=== PATIENT | male | born 1955 | race Asian ===

== ENCOUNTER → 2018-09-29 07:49 | Outpatient (CLI) | payer MEDICARE, SELFPAY ==
--- NOTE | 2018-09-29 | DI.MRI.S_ITS ---
PROCEDURE: MR KNEE RT WO CON INDICATIONS: SURGERY PLANNING - right TECHNIQUE: Noncontrast sagittal PD fast spin echo and T2 fast spin echo with fat saturation, sagittal 3-D FLASH with fat saturation; coronal T1 spin echo and PD fast spin echo with fat saturation, and axial PD fast spin echo with fat saturation through the knee. COMPARISON: [facility] [place], CR, XR KNEE ARTHRITIC SERIES BI, 09/16/2018, 13:30. FINDINGS: Image quality: Excellent. Menisci: There is medial extrusion of the medial meniscus. Amorphous high signal intensity within the anterior horn, body, and posterior horn of the medial meniscus is present, demonstrating superior and inferior articular surface extension, indicating degenerative tearing. Multiple para meniscal cysts are present medially and posteriorly. The lateral meniscal body demonstrates radial tearing of the free edge. Cruciate ligaments: The anterior and posterior cruciate ligaments appear intact. Medial structures: There is a small amount of fluid deep to the medial collateral ligament. There is high-grade tearing of the posterior fibers of the medial collateral ligament. Visualized portions of the pes anserinus tendons appear normal. No abnormal bursal fluid. Lateral structures: The lateral collateral ligament demonstrates mild T2 signal elevation within the proximal aspect of the femoral origin. The long and short heads of the biceps femoris tendon appear intact. The popliteus tendon appears normal. Iliotibial band appears normal. Anterior structures: The quadriceps and patellar tendons appear intact. There is mild T2 signal elevation within the patellar tendon superiorly at the patellar insertion. Patellar alignment is normal. No femoral trochlear dysplasia or ventral trochlear prominence. No edema in the infrapatellar fat pad. Bones and cartilage: No bone marrow contusions or fractures. There is moderate tricompartmental periarticular osteophyte formation. There is mild subchondral degenerative marrow edema within the posterior weightbearing and nonweightbearing aspect of the medial femoral condyle, as well as the anterior and posterior weightbearing aspect of the medial tibial plateau. Subchondral cysts within the medial tibial plateau weightbearing aspect anteriorly. Severe diffuse articular cartilage loss overlies the weightbearing aspects of the medial femoral condyle and medial tibial plateau. Mild diffuse articular cartilage loss overlies the weightbearing aspects of the lateral femoral condyle and lateral tibial plateau, as well as the medial and lateral patellar facets and femoral trochlea. Joint space: There is a moderate knee joint effusion, and a small ganglion cyst along the popliteus. No Roberts's cyst. Normal appearing synovial plicae are incidentally noted. IMPRESSION: 1. Tricompartmental osteoarthritis with associated articular cartilage loss, worst in the medial compartment. 2. Medial and lateral meniscal tearing. 3. Partial-thickness tearing of the medial and lateral collateral ligaments. Medial collateral ligament bursitis. 4. Small knee joint effusion. Small ganglion cyst along the popliteus. 5. Patellar tendinitis. Dictated by: Brenda Zhou M.D. on 09/29/2018 at 10:17 Approved by: Brenda Zhou M.D. on 09/29/2018 at 10:23
--- NOTE | 2018-09-29 | DI.MRI.S_ITS ---
PROCEDURE: MR KNEE LT WO CON INDICATIONS: RIGHT KNEE PAIN TECHNIQUE: Noncontrast sagittal PD fast spin echo and T2 fast spin echo with fat saturation, sagittal 3-D FLASH with fat saturation; coronal T1 spin echo and PD fast spin echo with fat saturation, and axial PD fast spin echo with fat saturation through the knee. COMPARISON: [facility], MR, MR KNEE RT WO CON, 09/29/2018, 8:59. FINDINGS: Image quality: Excellent. Menisci: Complex tear involving anterior horn, body and posterior horn of medial meniscus is seen extending to the inferior articulating surface. Peripheral displacement of medial meniscus is seen bony medial collateral ligament. There is no evidence of focal lateral meniscal tear. The meniscal root ligaments appear intact. Cruciate ligaments: The anterior and posterior cruciate ligaments appear intact. Medial structures: Sprain and low to moderate grade partial-thickness tear involving MCL is seen near its femoral insertion.. The posterior oblique ligament, semimembranosus tendon insertions, oblique popliteal ligament, and meniscocapsular junction appear intact. Visualized portions of the pes anserinus tendons appear normal. No abnormal bursal fluid. Lateral structures: The lateral collateral ligament, long and short heads of the biceps femoris tendon appear intact. The popliteus tendon appears normal; the popliteofibular ligament appears intact. The posterosuperior and anteroinferior popliteomeniscal fascicles appear intact. The arcuate and fabellofibular ligaments appear intact, on either side of the lateral inferior geniculate artery. Iliotibial band appears normal. Anterior structures: The quadriceps and patellar tendons appear intact. Patellar alignment is normal. No femoral trochlear dysplasia or ventral trochlear prominence. No edema in the infrapatellar fat pad. Bones and cartilage: Moderate tricompartment osteoarthritis and chondromalacia are seen most prominent involving medial femoral tibial compartment. Mild edema involving medial femoral condyle weightbearing portion and adjacent medial tibial plateau is seen. No fracture or dislocation. Chondromalacia and underlying tiny 3 mm osteochondral lesion involving lateral facet of patella cartilage near apex is also seen. Joint space: There is moderate amount of joint fluid, no gross loose body. No Roberts's cyst. Normal appearing synovial plicae are incidentally noted. IMPRESSION: 1. Moderate tricompartment osteoarthritis most prominent in the medial femoral tibial compartment. Chondromalacia patella as described above. Moderate joint effusion, no gross loose body. 2. Complex tear involving entire medial meniscus extending to inferior articulating surface. No focal lateral meniscal tear. 3. Sprain and low to moderate grade partial-thickness involving medial collateral ligament near its femoral insertion. Cruciate ligaments are intact. Dictated by: Anthony Guerrero M.D. on 09/29/2018 at 10:18 Approved by: Anthony Guerrero M.D. on 09/29/2018 at 10:48
== END ==
PROVIDERS: PCP Family Medicine; Visit Provider Orthopaedic Surgery
DX: M17.0 Bilateral primary osteoarthritis of knee (principal); S83.241A Other tear of medial meniscus, current injury, right knee, initial encounter; S83.281A Other tear of lateral meniscus, current injury, right knee, initial encounter; S83.421A Sprain of lateral collateral ligament of right knee, initial encounter; S83.411A Sprain of medial collateral ligament of right knee, initial encounter; M76.51 Patellar tendinitis, right knee; M67.461 Ganglion, right knee; M25.461 Effusion, right knee; S83.232A Complex tear of medial meniscus, current injury, left knee, initial encounter; S83.412A Sprain of medial collateral ligament of left knee, initial encounter; M22.42 Chondromalacia patellae, left knee; M25.462 Effusion, left knee
CPT/HCPCS: 73721

== ENCOUNTER 2018-11-10 08:53 | Inpatient (IN) | payer MEDICARE, SELFPAY ==
[2018-11-02 12:14] VITALS: BMI 24.3
[2018-11-10] VITALS (14 sets, daily range): BP systolic 123–145; BP diastolic 74–86; PULSE 70–95; RESP 10–16; TEMP 36.3–36.7; O2SAT 93–100; BMI 24.3
--- NOTE | 2018-11-10 09:03 | DI.RAD.S_ITS ---
PROCEDURE: XR KNEE LT 1TO2V INDICATIONS: total left knee TECHNIQUE: 2 view(s) of the knee acquired. COMPARISON: None. FINDINGS: Bones: Patient is status post knee joint arthroplasty. Hardware components are in expected positions. Visualized bony structures are intact. Soft tissues: Overlying postoperative changes are noted. IMPRESSION: Post left total knee arthroplasty changes with anatomic left knee alignment. Dictated by: Anthony Guerrero M.D. on 11/10/2018 at 15:58 Approved by: Anthony Guerrero M.D. on 11/10/2018 at 15:58
--- NOTE | 2018-11-10 09:03 | DI.RAD.S_ITS ---
PROCEDURE: XR KNEE RT 1TO2V INDICATIONS: total right knee TECHNIQUE: 2 view(s) of the knee acquired. COMPARISON: None. FINDINGS: Bones: Patient is status post knee joint arthroplasty. Hardware components are in expected positions. Visualized bony structures are intact. Soft tissues: Overlying postoperative changes are noted. IMPRESSION: Post right total knee arthroplasty changes with anatomic right knee alignment. Dictated by: Anthony Guerrero M.D. on 11/10/2018 at 15:58 Approved by: Anthony Guerrero M.D. on 11/10/2018 at 15:58
[2018-11-10] MEDS: PREGABALIN 75 MG CAPSULE PO (09:38)
[2018-11-10] MEDS: ACETAMINOPHEN 325 MG TABLET 975 MG PO ×2 (09:38→20:37)
[2018-11-10] MEDS: LACTATED RINGERS 1,000 ML 42 ML IV (10:45)
--- NOTE | 2018-11-10 10:53 | PM.PREOP ---
Pre-operative Note Interval Note History & Physical reviewed/Exam performed by Physician: Yes Changes to H&P: No
--- NOTE | 2018-11-10 10:55 | P.OP_ITS ---
Operative Date/Time/Diagnoses Date of procedure: 11/10/18 Time of procedure: 14:53 Pre-op diagnosis: Bilateral knee arthritis Post-op diagnosis: same Procedure & Clinicians Procedure: Bilateral total knee arthroplasty Same procedure as scheduled: Yes Indications: The patient presents today for total knee arthroplasty after failure of conservative treatment. The nature of the procedure including the risks and benefits, alternatives, postoperative course and expected outcome were discussed and all questions answered. Consent was obtained. Operative site confirmed and marked. Surgeon: Donald Park Risk Control Product Liability Director: Jovany Burrell Anesthesia Type: General, Spinal and Local Operative Notes Findings: Severe bilateral knee arthritis with varus alignment. The patient had 15 degree flexion contractures bilaterally. 2+ distal femoral cuts were made on both knees. A 2+ tibial cut was made on the right knee. Closure Type: primary Specimen(s): none sent Prosthetic devices, grafts, tissues, transplants, or devices: [employer]CS: RIGHT: 6 femoral component, 6 tibial component, 9 mm BCS polyethylene tray and 35 x 9 mm round patella. LEFT: 6 femoral component, 6 tibial component, 9 mm BCS polyethylene tray and 35 x 9 mm round patella. Applied: implant(s) Estimated Blood Loss (mL): 50 Blood products transfused: none Tourniquet time (min): 60 Procedure in detail: The patient was taken to the operative suite and placed under general and spinal anesthesia. The patient was given prophylactic antibiotics prior to surgery. The patient was also given tranexamic acid, 1 g, just prior to surgery for postoperative hemostasis. The lateral knee was prepped and the joint injected with 20 mL of 1% Lidocaine with epinephrine. The right knee was then prepped and draped in usual sterile fashion. The leg was exsanguinated with an Esmarch dressing and the tourniquet raised to 250 torr. A 15 cm anterior incision was made. Next a medial trivector arthrotomy was made. The extensor mechanism was marked to ensure accurate repair. Initial exposing dissection was carried out medially and laterally. The knee was then extended and the patellar thickness was measured and a cut made removing approximately 9 mm of bone with a goal of restoring normal patellar thickness. The patella was then sized and drilled. Some excess lateral bone was excised and the patellofemoral ligament released. The tourniquet was then released. The knee was then flexed and the [employer] femoral guide was placed. The anterior pins were placed and the distal rotation holes drilled. The distal cutting guide was placed and a +2 mm distal femoral cut was made. The templating cutting block was then placed and the anterior, posterior and chamfer cuts made. The [employer] tibial guide was placed and the alignment checked along the axis of the proximal tibial with a jerald. The proximal tibial cut was then made with an oscillating saw. All meniscus and bony debris was then removed. Flexion extension gaps were checked. The knee was tight in both flexion extension and tight medially. In addition to regular osteophyte and soft tissue releases the MCL was released with an 18 gauge needle to balance the knee. An additional 2 mm of proximal tibia was also resected. This improved the balance. There was still some inc reased lateral as opposed to medial laxity.. The soft tissues were then injected with a combination of 10 mL of half percent Marcaine with epinephrine and 10 mL of Exparel. The trial components were then placed. The knee went into full extension and flexion beyond 120?. There was good medial- lateral balance throughout motion with again slightly increased lateral laxity is post a medial. Patellar tracking was excellent. The trial components were removed and size is confirmed for the final implants. The knee was then exsanguinated with an Esmarch dressing and the tourniquet reapplied for cementing. The knee was cleansed with Pulsavac irrigation and dried. The final components were cemented in with high viscosity vacuum mixed bone cement with antibiotics. The knee was held in extension and the patellar clamp until the cement had adequately cured. The knee was then irrigated with dilute Betadine solution. The extensor mechanism was closed with 5 interrupted #1 Vicryl sutures in 90 degrees of flexion. The joint was then injected with a combination of 1 g of tranexamic acid and 20 mL of quarter percent Marcaine with epinephrine. The subcutaneous tissue was closed with 2-0 Vicryl. The skin was closed with guido and surgical adhesive. An Aquacel dressing and Marin wrap were then applied. The identical procedure was then carried out on the left side. The left knee al so had a +2 femoral cut given the flexion contracture. Similar medial releases were done on the left side. The left side did not require an additional 2 mm cut from the proximal tibia. The knee balanced well with just very slight increased lateral as opposed to medial laxity throughout motion. Patellar tracking was excellent. Complications: none Condition: stable Disposition: PACU Plan for aftercare: [facility] protocol for total knee arthroplasty.
[2018-11-10] MEDS: CELECOXIB 200 MG CAPSULE PO (11:51)
[2018-11-10] MEDS: CEFAZOLIN 2 GM/100 ML FROZ.PIGGY IV ×3 (11:52→23:59)
--- NOTE | 2018-11-10 12:35 | SUR.OPER ---
Supine on padded OR bed. Pillow under head, arms secured on padded armboards <90 degree abduction. Safety belt across torso. Operative legs secured in De[employer]o/Garrett positioner. Foam padded brace at thigh of bilateral operative legs.
[2018-11-10] MEDS: LIDOCAINE 1% W/EPI INJ 40 ML INJ (12:43)
[2018-11-10] MEDS: BUPIVACAINE 0.25% W/ EPI (PF) 20 ML, TRANEXAMIC ACID 1,000 MG, SODIUM CHLORIDE 0.9% 10 ML INJ (12:47)
[2018-11-10] MEDS: BUPIVACAINE LIPOSOME INJ (13:42)
[2018-11-10] MEDS: BUPIVACAINE INJ (13:42)
[2018-11-10] MEDS: [UNRECOGNIZED DRUG - OTHER] INJ (13:42)
[2018-11-10] MEDS: EPI INJ (13:42)
--- NOTE | 2018-11-10 15:15 | SUR.PHASEI ---
1450 To PACU , sleeping, no reponse to voice, resp unlabored, skin warm and dry. Neeraj knee dressing CDI, knees elevated on pillows, ice packs in place behind knees. Circulation checks to feet within normal limits. 1503 x-rays being taken, patient moaned in acknowledgement of x-ray tech talking to the patient; he then returned to sleep immediately.
--- NOTE | 2018-11-10 15:33 | SUR.PHASEI ---
Report called to acute care. Stable.
--- NOTE | 2018-11-10 15:48 | SUR.PHASEI ---
2nd bag LR hung in OR by anesthesia, 1500 ml total infusion
--- NOTE | 2018-11-10 16:09 | SUR.PHASEI ---
1548 to room 212, bed down and locked, call light within reach, SCDs on. Dressings remain CDI, Very drowsy, continuous pulse ox on. Sent family to the room and explained that he is very drowsy, ask them to engage the patient. Clothing bag, walker, and cane to the room. No questions from staff.
[2018-11-10] MEDS: LACTATED RINGERS 1,000 ML 125 ML IV (16:47)
--- NOTE | 2018-11-10 16:56 | PT-IP ANOTE ---
RN noted pt is too drozy at this time and would not be appropriate for PT. Plan to check on pt in AM for PT eval.
--- NOTE | 2018-11-10 17:26 | PC.NURSE ---
Feder[place] shift note: 1600, Received patient from PACU, sleepy but arouses to voice and follows simple commands. VSS, On O2 at 2L via NC, sats 95%. Brother at bedside providing supportive care and will be spending the night. stopped by briefly. Oriented to room, environment, and plan of care. Call light within reach.
[2018-11-10] MEDS: ASPIRIN EC 81 MG TABLET PO (20:37)
[2018-11-10] MEDS: MIRTAZAPINE 15 MG TABLET 45 MG PO (20:38)
[2018-11-10] MEDS: GABAPENTIN 400 MG CAPSULE 800 MG PO (20:38)
[2018-11-10] MEDS: OXYCODONE IR 5 MG TABLET PO (20:38)
[2018-11-10] MEDS: CYCLOBENZAPRINE 10 MG TABLET PO (20:39)
[2018-11-11] VITALS (11 sets, daily range): BP systolic 135–144; BP diastolic 73–81; PULSE 75–106; RESP 14–19; TEMP 36.4–36.8; O2SAT 93–99
[2018-11-11] MEDS: OXYCODONE IR 5 MG TABLET PO (00:02)
[2018-11-11] MEDS: LACTATED RINGERS 1,000 ML 125 ML IV ×2 (00:03→08:10)
--- NOTE | 2018-11-11 00:20 | PC.NURSE ---
Addendum entered by Cyndi Cook R.N. 11/11/18 06:47: Brother states patient slept better after receiving Dilaudid but now states pain is again 9/10 so medicated with Dilaudid again and fresh ice packs applied. States knees feel like they are being squeezed; SCD's removed to see if helps decrease pain. Addendum entered by Cyndi Cook R.N. 11/11/18 03:48: Awake and states pain in knees is currently 9/10 and, although has been asleep, states he didn't feel as though the Oxycodone works very well. Switched to po Dilaudid and ice applied to knees. Refused to reposition at this time. Original Note: Patient is drowsy but oriented and responds appropriately to questions. Breath sounds diminished but CTA with sat of 96% on oxygen at 2L/min per NC; on continuous oximetry per epidural orders. HRR. Denies nausea. BT hypoactive and denies flatus. Indwelling catheter is patent with clear yellow urine in bag. Dressings to bilateral knees are CDI. Complains of 7/10 pain in knees with movement; medicated with Oxycodone but declined ice pack. CMS intact and can move lower extremities minimally; unable to lift off bed. Assisted to reposition q2h as not turning himself. Fall risk score is moderate and bed alarm is activated. Has not been out of bed since return from surgery but reports pre-op was unsteady and used walker. Brother rooming in.
[2018-11-11] MEDS: HYDROMORPHONE 2 MG TABLET PO ×3 (03:40→10:20)
[2018-11-11 06:38] LABS: Hematocrit 43.4 % (41-53); Hemoglobin 14.7 g/dL (13.5-17.5)
[2018-11-11] MEDS: HYDROMORPHONE 2 MG INJ IV (07:58)
[2018-11-11] MEDS: ASPIRIN EC 81 MG TABLET PO ×2 (08:11→20:04)
[2018-11-11] MEDS: PANTOPRAZOLE 20 MG TABLET PO (08:11)
[2018-11-11] MEDS: CYCLOBENZAPRINE 10 MG TABLET PO ×4 (08:11→20:04)
[2018-11-11] MEDS: GABAPENTIN 400 MG CAPSULE 800 MG PO ×4 (08:11→20:04)
[2018-11-11] MEDS: ACETAMINOPHEN 325 MG TABLET 975 MG PO ×3 (08:11→20:04)
[2018-11-11] MEDS: KETOROLAC 30 MG/ML VIAL IV (09:06)
--- NOTE | 2018-11-11 10:19 | PM.PNPO.1 ---
Subjective Date Patient Seen: 11/11/18 Time Patient Seen: 08:00 Interval history: Patient is POD#1 s/p bilateral knee arthroplasty with Dr. Park. Pain has been severe. Patient was transitioned from Oxycodone to Dilaudid 2mg PO with minimal relief. He has not been out of bed yet due to pain. Perez catheter in place. Denies chest pain, shortness of breath. Exam Vital Signs (past 8 hours): - 11/11/18 03:45 11/11/18 07:30 11/11/18 07:34 Temperature 97.9 F 97.6 F Pulse Rate 91 H 79 80 Respiratory Rate 18 18 14 Blood Pressure 139/78 135/73 Pulse Oximetry 93 94 94 11/11/18 09:08 11/11/18 09:11 Temperature Pulse Rate Respiratory Rate Blood Pressure Pulse Oximetry 96 93 Fraction of Inspired Oxygen 28 Oxygen Delivery Method Nasal Cannula Oxygen Flow Rate 1 Narrative Exam Narrative: 63 year old male resting in bed, in moderate to severe discomfort. Alert and oriented. Dressings in place over bilateral knees are clean, dry, and intact. Intact sensation in distal extremities. Intact ankle flexion/extension. Pulses symmetric. Calves soft, compressible. Objective Labs Result Diagrams: 11/11/18 06:28 Labs: Laboratory Results - last 24 hr 11/11/18 06:28 Hgb 14.7 Hct 43.4 Assessment & Plan Post-op Postoperative Procedures Operation Date: 11/10/18 11:00 Actual Procedures Side Surgeon p Total Knee Arthroplasty Bilateral Donald Park MD Pain control: Increased oral dilaudid to 4mg PO Q3hr. One time dose of Dilaudid 2mg IV given at bedside along with 30mg Toradol IV. Mobilize with PT later today with better pain control. D/c perez this afternoon. Quality VTE Deep Vein Thrombosis/Pulmonary Embolism Present on Admission: No
[2018-11-11] MEDS: HYDROMORPHONE 2 MG TABLET 4 MG PO ×5 (10:20→22:46)
--- NOTE | 2018-11-11 11:28 | PT.IIE ---
Current Diagnoses Bilateral primary osteoarthritis of knee (11/10/18) Surgery Performed Operation Date: 11/10/18 11:00 Actual Procedures p Total Knee Arthroplasty(Bilateral) - Donald Park MD Surgical History (Last Updated 11/02/18 @ 13:21 by Billie Luevano RN) History of back surgery (Acute) History of ear surgery (Acute) History of lumbar fusion (Acute) Hx of appendectomy (Acute) S/P foot surgery, right (Acute) Medical History (Last Updated 11/02/18 @ 13:21 by Billie Luevano RN) Anxiety (Acute) Arthritis (Acute) Back pain (Acute) Bronchitis (Acute) DJD (degenerative joint disease) (Acute) Depression (Acute) Headache (Acute) Heartburn (Acute) Kidney stone (Acute) Numbness (Acute) Panic attacks (Acute) Sciatic nerve pain (Acute) Physical Therapy Inpatient Evaluation/Re-Eval M1 PT/OT-IP Prior Functional Status Start: 11/10/18 16:55 Freq: NEEDED Status: Active Protocol: Document 11/11/18 11:28 AB (Rec: 11/11/18 12:48 AB [id number]) Medical Review Prior Functional Status Medical History Reviewed Yes Communication able to make needs known Mobility and Gait pt stated that he is modified independent with all mobilities and ambulation using SPC indoors and a 4WW for outdoor mobility Social History Household Members spouse Living Arrangements House Number of Floors (Floors) 3 or More Floors Number of Stairs To Enter/Railing? one step to enter; pt will stay on first level of the house shower/bathroom is upstairs: 14 steps with L rail ascending Home Environment Standard Height Toilet Tub/Shower Home Equipment Four Wheel Walker Straight Cane Hand Held Shower Additional Social History Comment pt's brother will stay with pt for ~ 2 months to assist him pt stated that he is on disability and not able to work M2 PT-IP Current Condition Start: 11/10/18 16:55 Freq: NEEDED Status: Active Protocol: Document 11/11/18 11:28 AB (Rec: 11/11/18 12:48 AB [id number]) Physical Therapy Current Condition Current Condition Evaluation Date 11/11/18 Treatment Diagnosis s/p B TKA; difficulty in walking Onset Date 11/10/18 Weight Bearing Status Weight Bearing Status Weight Bear as Tolerated M3 PT-IP Subjective Start: 11/10/18 16:55 Freq: NEEDED Status: Active Protocol: Document 11/11/18 11:28 AB (Rec: 11/11/18 12:48 AB [id number]) Subjective Physical Therapy Visit Type Type Initial Evaluation Visit Start Time 11:28 Visit Stop Time 12:02 Total Visit Minutes 30 Number of OUTPATIENT SERVICES DIRECTOR Visits 0 Physical Therapy Visit Comments Patient Comments pt agreeable to do PT; Pt seems drowsy and requires cues to keep eyes open Therapy Pain Assessment Pain When Pain Assessed At Rest Pain Present Pain Present Pain Reported Location Right Knee Intensity 9 Scale Used Numeric (1 - 10) Description Tightness Pain Management Techniques Re-positioning Timing of Activity with Medications Left Knee Intensity 8 Description Tightness Pain Management Techniques Re-positioning Timing of Activity with Medications M4 PT-IP Mobility and Gait Start: 11/10/18 16:55 Freq: NEEDED Status: Active Protocol: Document 11/11/18 11:28 AB (Rec: 11/11/18 12:48 AB [id number]) PT-Bed Mobility Assessment Supine to Sit Supine to Sit Minimal Assistance 1 Person Assistance Scooting Scooting to Edge of Bed Minimal Assistance PT-Transfer Assessment Sit to and From Stand Sit to and from Stand Moderate Assistance 2 Person Assistance Use of Upper Extremities Equipment Transfer Assistive Device Gait Belt Front Wheeled Walker Transfers Transfer Destination Chair Transfer Technique Stand Step Pivot Transfer Ability Level of Assist Moderate Assistance 2 Person Assistance Use of Upper Extremities Comments Mobility Comments requires cues for quads activation Gait Assessment Comments Gait Comments able to take ~ 4 steps during transfer to the chair using FWW mod A x 2 and cues PT-Balance Assessment Sitting Balance and Reactions Static Sitting Balance Ability Good Dynamic Sitting Balance Ability Good Standing Balance and Reactions Static Standing Balance Ability Fair Dynamic Standing Balance Ability Poor Device Used FWW M5 PT-IP Objective Assessments Start: 11/10/18 16:55 Freq: NEEDED Status: Active Protocol: Document 11/11/18 11:28 AB (Rec: 11/11/18 12:48 AB [id number]) Orientation Orientation/Cognition Level of Alertness Alert Orientation Name Date Place Situation Language Function Ability No Deficits Noted Safety Awareness Decreased Safety Awareness Gross Range of Motion Lower Extremity ROM Assessment Bilaterally Impaired Impairments L knee flexion: ~ 30 deg R knee flexion: ~ 40 deg bilateral knee extension: lacking 20 degrees to neutral Strength Lower Extremity Strength Assessment Bilaterally Impaired Comments Strength Comments LLE: 3+/5 RLE: 3-/5 Sensation Assessment Sensation Gross Sensation WNL Muscle Tone Muscle Tone WNL Yes M6 PT-IP Treatment Start: 11/10/18 16:55 Freq: NEEDED Status: Active Protocol: Document 11/11/18 11:28 AB (Rec: 11/11/18 12:48 AB [id number]) Physical Therapy Treatment Exercises Exercises Quad Sets Heel Slides Education Education Provided Precautions Weight Bearing Status Post-Op Packet Safety M7 PT-IP Assessment and Plan Start: 11/10/18 16:55 Freq: NEEDED Status: Active Protocol: Document 11/11/18 11:28 AB (Rec: 11/11/18 12:48 AB [id number]) PT Summary Assessment and Plan Potential Rehabilitation Potential Fair Status of Condition at Evaluation Evolving Summary Impairments Pain ROM Strength Balance Coordination Sensation Tone Cognition Bed Mobility Transfers Gait Activity Tolerance Assessment Summary pt requiring 2 person assist with mobility at this time. d /c plan depending on progress and pt plans to go home with his brother to assist him. pt has not set up any outpt PT yet. informed pt's brother that pt will need a FWW, tub transfer bench and grab bars/ RTS with handles for pt to use at home. DME list provided. will continue to assess pt's progress but at this time may require SNF rehab. Goals Bed Mobility Goal Independent Transfer Goal Standby Assistance Front Wheeled Walker Gait Goal Standby Assistance Front Wheel Walker Gait Distance 100 Other Goals up/down 1 step using FWW CGA Days to Meet Goals 5 Frequency of Treatment Frequency Of Treatment Twice a Day Treatment Plan Physical Therapy Treatment Plan Bed Mobility Training Transfer Training Gait Training Therapeutic Exercise Balance Retraining Post Op Education Discharge Planning Hot or Cold Pack Neuromuscular Re-ed Coordination Retraining Manual Therapy Recommendations To Nursing Amount of Assist Needed 2 Person Assist Discharge Recommendations PT Discharge Recommendations Home with 24/7 Assist Home Health SNF Rehab Outpatient PT Other Discharge Recommendations depending on progress: SNF vs home with 24/7/ homehealth PT/ outpt PT Equipment Needed for Home Before FWW Discharge
--- NOTE | 2018-11-11 13:00 | PC.NURSE ---
Day Shift- Pt A&OX4, rating 10/10 pain this AM, spoke with MATT Stuart this AM, asking to increase pain medications for more effective control. Dilaudid 2mg IV X1 given at 0800 with good effect, pain decreased to 5/10 equally to bilateral knees at incision area. Toradol 30mg IV X1 given at 0905 which did not seen as effective as IV Dilaudid. PRN Dilaudid po increased from 2mg to 4mg, last dose at 1020 which decreased pain from 10/10 to 5/10. IVF S/L'd at 1200. Pt OOB with PT to chair at bedside with PT and SBA assist. Pt's brother Gurpreet at bedside throughout shift to help translate as pt intermittently speaks Nepalese.
[2018-11-11] MEDS: ONDANSETRON 4 MG ODT PO (13:19)
--- NOTE | 2018-11-11 13:34 | CM.DANOTE ---
Addendum entered by Candi Zhang LPN 11/11/18 15:01: September/[facility] has reviewed case and they will have a bed for pt , whenever pt is medically stable for snf setting. Original Note: Discharge Planning/Care Management DCP: assessment: case received, EMR reviewed and met with pt and his brother Gurpreet Chan: cell: [phone] Introduced self and role. Most of conversation was with Gurpreet as pt in obvious pain and being assisted by 2 RNs. Pt is a 63 year old male who admitted yesterday for a planned surgery: bilateral BKAs. Surgeon: Dr. Park. PCP: Hermilo Rios Pt has history of severe back pain which has limited his functional mobility. Payer: Medicare. Confirmed no supplement. Admission status: has been in reviewed. Confirmed just now as INPT: as of 11/10: per [facility] CARRILLO Perkins. PT Roxanne did see pt today and at this point is recommending consideration of SNF. Have a call into ortho PA Ban to see if OT can also be involved, due to the complexity of the surgery and consideration of snf vs home plan. Went over d/c dispo options: plan has now been identified as a probable snf rehab before home with pt's brother and his to assist vs directly home and OUTPT if Gurpreet and pt's can manage and can get all needed equipment into the home. Both pt and Gurpreet would like pt to be placed on snf list: choice list: discussed: decision: [facility] as is close to and pt could have his followup appt with orthopedic team here in [place]. Both think this would be preferable to the [facility] which is nearer to the pt's [place] home. Referral is in for [facility] via efax and vm...will follow up on this. Gurpreet confirms that he is here from [facility] to assist his brother. He had planned to return home in early December but says if he is needed it will be no problem to extend this. P: will check in with them tomorrow. Gurpreet says pt's Deedee will be available then and pt will hopefully be feeling better and able to continue the conversation re this DCP. P: at this point: likely [facility] at d/c....will be following. CM Discharge Assessment Start: 11/11/18 13:32 Freq: Status: Active Protocol: Document 11/11/18 13:32 ITV (Rec: 11/11/18 13:34 ITV [id number]) Discharge Planning Assessment Advance Directives? No: Declines further information History Provided By Patient Family Member Medical Record Prior Living Arrangements House Household Members spouse Is patient alert and oriented? Yes If patient plan is SNF: Has PASSR been Yes completed? Has Agency SNF been contacted Yes Whiteboard Updated in Patient Room with Yes name and ext. # of Range Mounter Review Status In Process Pre-Anesthesia Assessment Start: 11/02/18 12:14 Freq: Status: Complete Protocol: Document 11/02/18 12:14 CAB (Rec: 11/02/18 13:35 CAB [id number]) Pre-Anesthesia Assessment Patient Information Reviewed Via Phone Assessment Assessment Completed With Patient Diagnostic Results BMP/CMP CBC EKG Comment Outside labs/EKG scanned to record Primary Care Provider Hermilo Rios Seen Specialist in Last 12 Months Yes Specialist Seen Orthopedist Primary Language Lithuanian Preferred Language Comoran Spring Encaser Required No Height 185.42 cm Weight 83.461 kg Body Mass Index (BMI) 24.3 Hearing Ability Normal Visual Assist Glasses Dentition Type Teeth, Natural Present Barriers to Learning None Other Aids No Hx Anesthesia Reactions No Hx Family Anesthesia Reaction No Hx Malignant Hyperthermia No Hx Blood Transfusions No Anesthesia Review Requested No Last Model Maker No alcohol intake current alcohol intake frequency holidays/special occasions only Smoking Status Current every day smoker Tobacco type cigarettes Substance Use Type does not use Pain Present Pain Reported Musculoskeletal Symptoms Abnormal Gait Back Pain Difficulty Walking Joint Pain Numbness Tingling History of Falling (Recent or History of No ) Patient is completely paralyzed or No completely immobile Prosthesis or Orthotic Device Cane Front Wheel Walker Wheelchair Mental Status Oriented to own ability Is patient on oxygen? 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 No Cardiac Clearance Received Not Applicable Diet Type At Home Regular dysphagia No Genitourinary Symptoms Difficulty Urinating Urinary Catheter Present No Hx Urinary Self Catheterization No Diabetes No Hx Drug Resistant Organism No Presence of External or Internal Medical No Devices Have you traveled outside the [place] No States in the last 30 days? Marital Status Lives With spouse Prior Living Arrangements House Number of Floors (Floors) 3 or More Floors Support System Sibling(s) Spouse Does the Patient Have Assistance After Yes Surgery Patient Discharge Plan Description Return Home Comment Pt advised 2 night length of stay per surgeon's office Feels Safe in Current Environment Yes Been Physically Hurt or Threatened By a No Person in Current Environment Do you have thoughts of harming yourself None or others? Are you currently considering suicide? No Do you have a plan to hurt yourself or No Plan others? Do You Have Any Spiritual Beliefs That No May Affect Your HC Choices? Do You Have Any Cultural Practices That No May Affect Your HC Choices? Spiritual Referral None Comment Evangelical Who Can We Speak to About Patient's Care Family, friends Identifying Code for Release of Patient Declines to issue Information Health Care Proxy/Next of Kin Deedee () Gurpreet (Brother) Health Care Proxy Phone Number Deedee: [phone] Gurpreet: [phone] Emergency Contact Name Deedee () Gurpreet (Brother) Emergency Contact Phone Number Deedee: [phone] Gurpreet: [phone] Advance Directives? No: Declines further information PAC Instructions Durable medical equipment Medications to take/avoid Nasal antibiotic No ETOH/petroleum product on skin DOS NPO Post-op transportation Pre-surgical wash Sturdy shoes/comfortable clothes Do not bring valuables and remove jewelry
--- NOTE | 2018-11-11 15:42 | PT.IPTN ---
Current Diagnoses Bilateral primary osteoarthritis of knee (11/10/18) Surgery Performed Operation Date: 11/10/18 11:00 Actual Procedures p Total Knee Arthroplasty(Bilateral) - Donald Park MD Physical Therapy Treatment Note M2 PT-IP Current Condition Start: 11/10/18 16:55 Freq: NEEDED Status: Active Protocol: Document 11/11/18 11:28 AB (Rec: 11/11/18 12:48 AB [id number]) Physical Therapy Current Condition Current Condition Evaluation Date 11/11/18 Treatment Diagnosis s/p B TKA; difficulty in walking Onset Date 11/10/18 Weight Bearing Status Weight Bearing Status Weight Bear as Tolerated M3 PT-IP Subjective Start: 11/10/18 16:55 Freq: NEEDED Status: Active Protocol: Document 11/11/18 15:42 AB (Rec: 11/11/18 17:40 AB [id number]) Subjective Physical Therapy Visit Type Type Treatment Note Visit Start Time 15:42 Visit Stop Time 16:03 Total Visit Minutes 21 Number of REGISTERED CLIENT ASSOCIATE Visits 0 Physical Therapy Visit Comments Patient Comments pt agreeable to do PT Therapy Pain Assessment Pain When Pain Assessed At Rest Pain Present Pain Present Pain Reported Location Bilateral Knee Intensity 8 Scale Used Numeric (1 - 10) Pain Management Techniques Re-positioning Timing of Activity with Medications M4 PT-IP Mobility and Gait Start: 11/10/18 16:55 Freq: NEEDED Status: Active Protocol: Document 11/11/18 15:42 AB (Rec: 11/11/18 17:40 AB [id number]) PT-Bed Mobility Assessment Sit to Supine Sit to Supine Standby Assistance PT-Transfer Assessment Sit to and From Stand Sit to and from Stand Moderate Assistance 1 Person Assistance Use of Upper Extremities Equipment Transfer Assistive Device Gait Belt Front Wheeled Walker Transfers Transfer Technique Stand Step Pivot Transfer Ability Level of Assist Moderate Assistance 1 Person Assistance Use of Upper Extremities Gait Assessment Gait Gait Assistance Required: Moderate Assistance Distance (Feet) 10 Able to Maintain Weight Bearing Status Yes During Gait Assistive Devices Assistive Device Gait Belt Front Wheeled Walker Orthotic/Prosthetic Devices or Brace: No Gait Deviations General Gait Pattern Antalgic Decreased Stride Length Decreased Feet Clearance Factors Limiting Gait Function Factors Limiting Gait Function Decreased Activity Tolerance Decreased Strength Limited Range of Motion Pain Poor Balance Poor Safety Awareness Comments Gait Comments pt completed sit to stand mod A and cues. pt ambulated using FWW 10 ft mod A and cues . requires cues for quad activation and stability. M5 PT-IP Objective Assessments Start: 11/10/18 16:55 Freq: NEEDED Status: Active Protocol: Document 11/11/18 11:28 AB (Rec: 11/11/18 12:48 AB [id number]) Orientation Orientation/Cognition Level of Alertness Alert Orientation Name Date Place Situation Language Function Ability No Deficits Noted Safety Awareness Decreased Safety Awareness Gross Range of Motion Lower Extremity ROM Assessment Bilaterally Impaired Impairments L knee flexion: ~ 30 deg R knee flexion: ~ 40 deg bilateral knee extension: lacking 20 degrees to neutral Strength Lower Extremity Strength Assessment Bilaterally Impaired Comments Strength Comments LLE: 3+/5 RLE: 3-/5 Sensation Assessment Sensation Gross Sensation WNL Muscle Tone Muscle Tone WNL Yes M6 PT-IP Treatment Start: 11/10/18 16:55 Freq: NEEDED Status: Active Protocol: Document 11/11/18 15:42 AB (Rec: 11/11/18 17:40 AB [id number]) Physical Therapy Treatment Exercises Exercises Heel Slides Seated Knee Flexion/Extension Education Education Provided Safety Other Treatments Other Treatment Performed informed pt's brother regarding equipement needs M7 PT-IP Assessment and Plan Start: 11/10/18 16:55 Freq: NEEDED Status: Active Protocol: Document 11/11/18 15:42 AB (Rec: 11/11/18 17:40 AB [id number]) PT Summary Assessment and Plan Potential Rehabilitation Potential Good Summary Impairments Pain ROM Strength Balance Coordination Sensation Tone Cognition Bed Mobility Transfers Gait Activity Tolerance Progress Towards Goals Slow Progress due to Pain Slow Progress due to Activity Tolerance Assessment Summary pt requiring mod A and cues for mobility and unable to tolerate much activity. d/c plan depending on progress. pt plans to go home with his brother assisting him. will continue to assess. Goals Bed Mobility Goal Independent Transfer Goal Standby Assistance Front Wheeled Walker Gait Goal Standby Assistance Front Wheel Walker Gait Distance 100 Other Goals up/down 1 step using FWW CGA Days to Meet Goals 5 Frequency of Treatment Frequency Of Treatment Twice a Day Treatment Plan Physical Therapy Treatment Plan Bed Mobility Training Transfer Training Gait Training Therapeutic Exercise Balance Retraining Post Op Education Discharge Planning Hot or Cold Pack Neuromuscular Re-ed Coordination Retraining Manual Therapy Recommendations To Nursing Amount of Assist Needed 2 Person Assist Discharge Recommendations PT Discharge Recommendations Home with 24/7 Assist Home Health SNF Rehab Outpatient PT Other Discharge Recommendations depending on progress: SNF vs home with 24/7/ homehealth PT/ outpt PT Equipment Needed for Home Before FWW Discharge
[2018-11-11] MEDS: MIRTAZAPINE 15 MG TABLET 45 MG PO (20:03)
[2018-11-11] MEDS: SODIUM CHLORIDE 0.9% FLUSH 10 ML IV (20:04)
--- NOTE | 2018-11-11 22:42 | PC.NURSE ---
[place] shift note: Patient unable to void post FC removal at 1330, attempted multiple times in different positions. Bladder scanned 339 ml. Drinking plenty of fluids without nausea. Refusing Straight Catheter, states will not allow it. States will continue to intake fluids and attempt again. Will make oncoming nurse aware.
[2018-11-12] VITALS (14 sets, daily range): BP systolic 122–148; BP diastolic 75–87; PULSE 109–118; RESP 14–20; TEMP 36.4–37.2; O2SAT 79–99
[2018-11-12] MEDS: HYDROMORPHONE 2 MG TABLET 4 MG PO ×6 (02:01→21:26)
--- NOTE | 2018-11-12 02:23 | PC.NURSE ---
Addendum entered by Cyndi Cook R.N. 11/12/18 05:39: Still unable to void so agreeable to straight cath for 650cc dark ashish, clear urine. Addendum entered by Cyndi Cook R.N. 11/12/18 05:19: Assisted to stand at beside in attempt to urinate as has not voided as yet. Patient still unable to urinate so assisted back into bed and bladder scan showing 653cc. Patient wants to try to urinate sitting in bed prior to having RN do in/out cath. Medicated with Dilaudid for 9/10 pain after standing at bedside. Original Note: Patient is oriented but drowsy. While asleep and mouth breathing found RA sat to be 79% so restarted on oxygen at 2L/min per NC with sat improving to high 80's so titrated up to 3L/min and now sat is 93%. Breath sounds CTA and denies SOB. HRR but tachy at 118 bpm; denies any chest pain. Denies nausea. BT present and abdomen is soft. Has not voided since catheter d'cd yesterday but refuses to get up to try to urinate at this time saying he feels no urge to void. Is able to move self in bed. Aquacel dressings + maribel wraps to bilateral knees are CDI. States pain in left leg is 9/10; medicated with Dilaudid but declines ice. Denies pain in right leg. Reports chronic numbness in left leg due to hx back surgery; unchanged since prior to admission. CMS otherwise intact. Fall risk score is moderate; bed alarm is activated. Wearing bilateral SCD's. Brother rooming in.
[2018-11-12] MEDS: SODIUM CHLORIDE 0.9% FLUSH 10 ML IV ×2 (08:47→21:20)
[2018-11-12] MEDS: GABAPENTIN 400 MG CAPSULE 800 MG PO ×4 (08:47→21:19)
[2018-11-12] MEDS: DOCUSATE 100 MG CAPSULE 200 MG PO (08:47)
[2018-11-12] MEDS: CYCLOBENZAPRINE 10 MG TABLET PO ×4 (08:47→21:20)
[2018-11-12] MEDS: PANTOPRAZOLE 20 MG TABLET PO (08:47)
[2018-11-12] MEDS: ACETAMINOPHEN 325 MG TABLET 975 MG PO ×3 (08:48→21:20)
[2018-11-12] MEDS: ASPIRIN EC 81 MG TABLET PO ×2 (08:48→21:20)
--- NOTE | 2018-11-12 10:18 | P.PN_ITS ---
Subjective Date Patient Seen: 11/12/18 Time Patient Seen: 10:14 Interval history: Hospital day 3, postop day 2 following bilateral total knee arthroplasty. Patient has remained stable. Continues having significant pain to both knees. Has been taking Dilaudid 4 mg q.3h and still complaining of pain. Also having difficulty voiding. He did have straight cath done at 0530 this morning and has not voided since then. He continues having this limitation on ambulation and activity with physical therapy. Still needing assist. Patient is desiring to go home but may need SNF. He is a [facility] patient and has prescriptions at home for oxycodone and Vistaril. Exam Vital Signs (past 8 hours): - 11/12/18 02:29 11/12/18 03:08 11/12/18 04:00 Temperature Pulse Rate Respiratory Rate Blood Pressure Pulse Oximetry 91 92 95 11/12/18 05:00 11/12/18 07:26 11/12/18 07:45 Temperature 97.8 F Pulse Rate 117 H Respiratory Rate 18 Blood Pressure 130/75 Pulse Oximetry 92 96 99 11/12/18 09:39 11/12/18 09:40 Temperature Pulse Rate Respiratory Rate Blood Pressure Pulse Oximetry 98 95 Fraction of Inspired Oxygen 28 Oxygen Delivery Method Room Air Oxygen Flow Rate 1 Narrative Exam Narrative: Alert, oriented in no acute distress resting in bed. Legs. Marin wraps an Aquacel dressing to both knees are dry without drainage or inflammation. No calf pain or swelling. Pulses symmetrical. Objective Labs Result Diagrams: 11/11/18 06:28 Assessment & Plan Post-op Postoperative Procedures Operation Date: 11/10/18 11:00 Actual Procedures Side Surgeon p Total Knee Arthroplasty Bilateral Donald Park MD Plan: Will DC Marin wraps today. Will start patient on Flomax 0.4 mg. Will add Vistaril 25 mg. Given dexamethasone 10 mg p.o. now and then 4 mg q.8h to help with pain rather than increasing narcotics. Patient will continue to work with PT. Anticipate possible discharge to [facility] [place] tomorrow versus home depending on how he is progressing. Quality VTE Deep Vein Thrombosis/Pulmonary Embolism Present on Admission: No
[2018-11-12] MEDS: dexAMETHasone 4 MG TABLET 10 MG PO (10:47)
[2018-11-12] MEDS: TAMSULOSIN 0.4 MG CAPSULE PO (10:47)
--- NOTE | 2018-11-12 10:47 | PT.IPTN ---
Current Diagnoses Bilateral primary osteoarthritis of knee (11/10/18) Surgery Performed Operation Date: 11/10/18 11:00 Actual Procedures p Total Knee Arthroplasty(Bilateral) - Donald Park MD Physical Therapy Treatment Note M2 PT-IP Current Condition Start: 11/10/18 16:55 Freq: NEEDED Status: Active Protocol: Document 11/11/18 11:28 AB (Rec: 11/11/18 12:48 AB [id number]) Physical Therapy Current Condition Current Condition Evaluation Date 11/11/18 Treatment Diagnosis s/p B TKA; difficulty in walking Onset Date 11/10/18 Weight Bearing Status Weight Bearing Status Weight Bear as Tolerated M3 PT-IP Subjective Start: 11/10/18 16:55 Freq: NEEDED Status: Active Protocol: Document 11/12/18 10:20 LJ (Rec: 11/12/18 10:47 LJ [id number]) Subjective Physical Therapy Visit Type Type Treatment Note Visit Start Time 10:20 Visit Stop Time 10:40 Total Visit Minutes 20 Physical Therapy Visit Comments Patient Comments pt agreeable to do PT. Denies dizziness and excessive fatigue. Feels awake enough to ambulate in room short distance. Therapy Pain Assessment Pain When Pain Assessed At Rest Pain Present Pain Present Pain Reported M4 PT-IP Mobility and Gait Start: 11/10/18 16:55 Freq: NEEDED Status: Active Protocol: Document 11/12/18 10:20 LJ (Rec: 11/12/18 10:47 LJ [id number]) PT-Bed Mobility Assessment Rolling Type of Rolling Roll to Right Supine to Sit Supine to Sit Minimal Assistance 1 Person Assistance Head of Bed Elevated Bedrails Sit to Supine Sit to Supine Standby Assistance PT-Transfer Assessment Sit to and From Stand Sit to and from Stand Moderate Assistance 1 Person Assistance Use of Upper Extremities Equipment Transfer Assistive Device Gait Belt Front Wheeled Walker Transfer Ability Level of Assist Moderate Assistance 1 Person Assistance Use of Upper Extremities Comments Mobility Comments requires multiple cues for posture, glute and quad activation during amblation. Heave reliance on UEs Gait Assessment Gait Gait Assistance Required: Moderate Assistance Distance (Feet) 15 Able to Maintain Weight Bearing Status Yes During Gait Assistive Devices Assistive Device Gait Belt Front Wheeled Walker Orthotic/Prosthetic Devices or Brace: No Gait Deviations General Gait Pattern Antalgic Decreased Stride Length Decreased Feet Clearance Factors Limiting Gait Function Factors Limiting Gait Function Decreased Activity Tolerance Decreased Strength Limited Range of Motion Pain Poor Balance Poor Safety Awareness Comments Gait Comments Pt requires multiple cues for posture, glute and quad activation. ModA for sit<> stand from bed to chair. CGA- Mac (cuing) for ambulation in room. Pt CGA stand to sit into chair. M5 PT-IP Objective Assessments Start: 11/10/18 16:55 Freq: NEEDED Status: Active Protocol: Document 11/11/18 11:28 AB (Rec: 11/11/18 12:48 AB [id number]) Orientation Orientation/Cognition Level of Alertness Alert Orientation Name Date Place Situation Language Function Ability No Deficits Noted Safety Awareness Decreased Safety Awareness Gross Range of Motion Lower Extremity ROM Assessment Bilaterally Impaired Impairments L knee flexion: ~ 30 deg R knee flexion: ~ 40 deg bilateral knee extension: lacking 20 degrees to neutral Strength Lower Extremity Strength Assessment Bilaterally Impaired Comments Strength Comments LLE: 3+/5 RLE: 3-/5 Sensation Assessment Sensation Gross Sensation WNL Muscle Tone Muscle Tone WNL Yes M6 PT-IP Treatment Start: 11/10/18 16:55 Freq: NEEDED Status: Active Protocol: Document 11/11/18 15:42 AB (Rec: 11/11/18 17:40 AB [id number]) Physical Therapy Treatment Exercises Exercises Heel Slides Seated Knee Flexion/Extension Education Education Provided Safety Other Treatments Other Treatment Performed informed pt's brother regarding equipement needs M7 PT-IP Assessment and Plan Start: 11/10/18 16:55 Freq: NEEDED Status: Active Protocol: Document 11/12/18 10:20 LJ (Rec: 11/12/18 10:47 LJ [id number]) PT Summary Assessment and Plan Potential Rehabilitation Potential Good Summary Impairments Pain ROM Strength Balance Coordination Sensation Tone Cognition Bed Mobility Transfers Gait Activity Tolerance Progress Towards Goals Slow Progress due to Pain Slow Progress due to Activity Tolerance Assessment Summary pt requiring mod A and cues for mobility and unable to tolerate much activity. d/c plan depending on progress. pt plans to go home with his brother assisting him. will continue to assess. Goals Bed Mobility Goal Independent Transfer Goal Standby Assistance Front Wheeled Walker Gait Goal Standby Assistance Front Wheel Walker Gait Distance 100 Other Goals up/down 1 step using FWW CGA Days to Meet Goals 5 Frequency of Treatment Frequency Of Treatment Twice a Day Treatment Plan Physical Therapy Treatment Plan Bed Mobility Training Transfer Training Gait Training Therapeutic Exercise Balance Retraining Post Op Education Discharge Planning Hot or Cold Pack Neuromuscular Re-ed Coordination Retraining Manual Therapy Recommendations To Nursing Amount of Assist Needed 2 Person Assist Discharge Recommendations PT Discharge Recommendations Home with 24/7 Assist Home Health SNF Rehab Outpatient PT Other Discharge Recommendations depending on progress: SNF vs home with 24/7/ homehealth PT/ outpt PT Equipment Needed for Home Before FWW Discharge
--- NOTE | 2018-11-12 10:58 | PT.IPTN ---
Current Diagnoses Bilateral primary osteoarthritis of knee (11/10/18) Surgery Performed Operation Date: 11/10/18 11:00 Actual Procedures p Total Knee Arthroplasty(Bilateral) - Donald Park MD Physical Therapy Treatment Note M2 PT-IP Current Condition Start: 11/10/18 16:55 Freq: NEEDED Status: Active Protocol: Document 11/11/18 11:28 AB (Rec: 11/11/18 12:48 AB [id number]) Physical Therapy Current Condition Current Condition Evaluation Date 11/11/18 Treatment Diagnosis s/p B TKA; difficulty in walking Onset Date 11/10/18 Weight Bearing Status Weight Bearing Status Weight Bear as Tolerated M3 PT-IP Subjective Start: 11/10/18 16:55 Freq: NEEDED Status: Active Protocol: Document 11/12/18 10:58 AB (Rec: 11/12/18 12:51 AB [id number]) Subjective Physical Therapy Visit Type Type Treatment Note Visit Start Time 10:58 Visit Stop Time 11:22 Total Visit Minutes 24 Number of CUSTOMS COMPLIANCE DIRECTOR Visits 0 Physical Therapy Visit Comments Patient Comments pt agreeable to do PT Therapy Pain Assessment Pain When Pain Assessed At Rest Pain Present Pain Present Pain Reported Location Bilateral Knee Intensity 8 Scale Used Numeric (1 - 10) Pain Management Techniques Apply Cold Modification of Treatment Timing of Activity with Medications M4 PT-IP Mobility and Gait Start: 11/10/18 16:55 Freq: NEEDED Status: Active Protocol: Document 11/12/18 10:58 AB (Rec: 11/12/18 12:51 AB [id number]) PT-Bed Mobility Assessment Supine to Sit Supine to Sit Standby Assistance Sit to Supine Sit to Supine Standby Assistance PT-Transfer Assessment Sit to and From Stand Sit to and from Stand Minimal Assistance 1 Person Assistance Equipment Transfer Assistive Device Gait Belt Front Wheeled Walker Orthotic/Prosthetic Devices or Brace: No Transfers Transfer Destination Bed Chair Transfer Technique pt agreeable to do PT Transfer Ability Level of Assist Minimal Assistance 1 Person Assistance Use of Upper Extremities Comments Mobility Comments pt ambulated from chair to bed using FWW ~ 15 ft min A and cues. Gait Assessment Gait Gait Assistance Required: Minimum Assistance Distance (Feet) 40 Able to Maintain Weight Bearing Status Yes During Gait Assistive Devices Assistive Device Gait Belt Front Wheeled Walker Orthotic/Prosthetic Devices or Brace: No Gait Deviations General Gait Pattern Antalgic Decreased Stride Length Decreased Feet Clearance Flexed Trunk Step-to Gait Factors Limiting Gait Function Factors Limiting Gait Function Decreased Activity Tolerance Decreased Strength Limited Range of Motion Pain Poor Balance M5 PT-IP Objective Assessments Start: 11/10/18 16:55 Freq: NEEDED Status: Active Protocol: Document 11/11/18 11:28 AB (Rec: 11/11/18 12:48 AB [id number]) Orientation Orientation/Cognition Level of Alertness Alert Orientation Name Date Place Situation Language Function Ability No Deficits Noted Safety Awareness Decreased Safety Awareness Gross Range of Motion Lower Extremity ROM Assessment Bilaterally Impaired Impairments L knee flexion: ~ 30 deg R knee flexion: ~ 40 deg bilateral knee extension: lacking 20 degrees to neutral Strength Lower Extremity Strength Assessment Bilaterally Impaired Comments Strength Comments LLE: 3+/5 RLE: 3-/5 Sensation Assessment Sensation Gross Sensation WNL Muscle Tone Muscle Tone WNL Yes M6 PT-IP Treatment Start: 11/10/18 16:55 Freq: NEEDED Status: Active Protocol: Document 11/12/18 10:58 AB (Rec: 11/12/18 12:51 AB [id number]) Physical Therapy Treatment Exercises Exercises Heel Slides Education Education Provided Safety M7 PT-IP Assessment and Plan Start: 11/10/18 16:55 Freq: NEEDED Status: Active Protocol: Document 11/12/18 10:58 AB (Rec: 11/12/18 12:51 AB [id number]) PT Summary Assessment and Plan Summary Impairments Pain ROM Strength Balance Bed Mobility Transfers Gait Activity Tolerance Progress Towards Goals Slow Progress due to Pain Assessment Summary pt progressing slowly with mobility. informed pt and pt' s brother regarding caregiver training for PT afternoon session and both are agreeable . d/c plan depending on caregiver training and if pt will be able to complete up/ down 1 step safely. Goals Bed Mobility Goal Independent Transfer Goal Standby Assistance Front Wheeled Walker Gait Goal Standby Assistance Front Wheel Walker Gait Distance 100 Other Goals up/down 1 step using FWW CGA Days to Meet Goals 5 Frequency of Treatment Frequency Of Treatment Twice a Day Treatment Plan Physical Therapy Treatment Plan Bed Mobility Training Transfer Training Gait Training Therapeutic Exercise Balance Retraining Post Op Education Discharge Planning Hot or Cold Pack Neuromuscular Re-ed Coordination Retraining Manual Therapy Recommendations To Nursing Amount of Assist Needed 1 Person Assist Discharge Recommendations PT Discharge Recommendations Home with 24/7 Assist Home Health SNF Rehab Outpatient PT Other Discharge Recommendations depending on progress: SNF vs home with 24/7/ homehealth PT/ outpt PT Equipment Needed for Home Before FWW Discharge
--- NOTE | 2018-11-12 11:18 | PC.NURSE ---
Addendum entered by Estela Brady R.N. 11/12/18 14:22: Bilateral maribel wraps removed around 1050. Pt voided X2, 400mls each time post Flomax administration. pain controlled at 4-5/10 pressure to bilateral knee incision area. Original Note: Day Shift- Pt A&OX4, able to make his needs known using call light and his brother Gurpreet is also in the room. Rates 7/10 pain this AM, Spoke with MATT Jenkins around 0740 to be made aware of pt's continued high pain issues. Also urinary retention from yesterday and need for straight catheter this AM by night RN. New orders rec'd, pt given Flomax at 1045 and Dexamethasone loading dose of 10mg po at 1045 per JUN. Pt reported 8/10 pain to bilateral knees that were pressure and aching, intermittent sharp. Bilateral knee aquacel dressings intact with small amount of sang drainage shadowing to right dressing that was marked with pen. CMS+, PPP, puffy edema to feet and lower legs bilaterally. Pt states has chronic numbness to left lower extremity that occurred after previous lumbar surgery. OOB to chair with PT around 1030. Okay per PT to ambulate pt in room back to bed with 2 person staff assist. AE, pt does have inspiratory wheeze to right upper and middle lobe, encouraged incentive spirometer use and pt able to properly demonstrate use up to 2500 volume. Denies any shortness of breath. Weaned O2 NC from 2.5L O2 to RA, pt now 94% on RA.
--- NOTE | 2018-11-12 13:15 | CM.DPC ---
Addendum entered by Candi Zhang LPN 11/12/18 15:50: Stopped in now to see pt and his family and to report that the referral was put in with [facility] but this DCPlanner still has had no response. All stated that we have been discussing this. We think we will stick to the plan for the one next door ([facility]) so please do not tell them to cancel. Deedee says that IF [facility] can take him tomorrow morning they might do this. They also have been encouraging pt to ask for a nictotine patch as he is a smoker. He is aware that he cannot smoke in any facility setting. His arslan nurse is updated and she will follow up on this. OF NOTE: have just been updated by team that Estela has called and states that pt could not be considered for an admission until at least Thursday. Pt and family will be updated. Addendum entered by Candi Zhang LPN 11/12/18 14:43: Met now with pt, his Deedee and pt's brother Gurpreet. Deedee explains that she is not sure her has understood the full implications of a snf stay. This is discussed again at length with all and with pt deferring now completely to his for decisions. She initially thought the snf stay would be only a couple of days. She reports that she will be doing all the driving and because they have a diabetic dog she must stay close to home. She wishes now for a referral to be put into [facility] so that pt will be closer to home. Explained to all that the d/c is likely for tomorrow and acceptance at [facility] is far from certain. Also discussed need for a w/c van transport and is unclear if [facility] can provide this on a weekend. Deedee plans to be here tomorrow by 0600 so that she can talk with the orthopedic provider. 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 Made a call immediately after this discussion to [facility] to discuss this referral and check on bed availability. Was told that Estela/carola liaison had just returned from lunch and was on her phone but that a vm could be left for her/done. [facility] Deborah is now faxing initial referral/clinic information on pt. P: at this point: snf at d/c. [facility] accepted, [facility] accepted. DCPlanner for tomorrow will need to follow up re this. Pt and family are aware that the DCPlanner will be here tomorrow by 0730. Will update them all today on the status of [facility] acceptance before going off shift at 1600. Original Note: DCP: continued: OT/PT team continue to recommend snf setting and ortho MATT Jonas is updated re this plan in Team Lina. Met now with pt to update him. He was found up with OT, still looking very uncomfortable but able to do more today than yesterday. Pt expresses thankfulness that [facility] is set up for him when he is stable for the d/c. His and brother will be in later this afternoon for the session with PT. They are both supportive of the [facility] plan and then will be assisting pt at home once he is ready for that setting. P: [facility] at d/c: [facility]: will need prior to d/c. DCP team will be following.
--- NOTE | 2018-11-12 13:59 | OT.IP.EVAL ---
Current Diagnoses Bilateral primary osteoarthritis of knee (11/10/18) Surgery Performed Operation Date: 11/10/18 11:00 Actual Procedures p Total Knee Arthroplasty(Bilateral) - Donald Park MD Past Medical History (Last Updated 11/02/18 @ 13:21 by Billie Luevano RN) Anxiety (Acute) Arthritis (Acute) Back pain (Acute) Bronchitis (Acute) DJD (degenerative joint disease) (Acute) Depression (Acute) Headache (Acute) Heartburn (Acute) Kidney stone (Acute) Numbness (Acute) Panic attacks (Acute) Sciatic nerve pain (Acute) Surgical History (Last Updated 11/02/18 @ 13:21 by Billie Luevano RN) History of back surgery (Acute) History of ear surgery (Acute) History of lumbar fusion (Acute) Hx of appendectomy (Acute) S/P foot surgery, right (Acute) Occupational Therapy Inpatient Evaluation/Re-Eval M1 PT/OT-IP Prior Functional Status Start: 11/12/18 13:35 Freq: NEEDED Status: Active Protocol: Document 11/12/18 13:37 [facility] (Rec: 11/12/18 13:59 [facility] [id number]) Medical Review Prior Functional Status Medical History Reviewed Yes Diet/Fluid Consistency Regular Thin Liquids Communication able to make needs known Mobility and Gait pt stated that he is modified independent with all mobilities and ambulation using SPC indoors and a 4WW for outdoor mobility Activities of Daily Living and IADL's Pt states able to do all ADL's and IADL's but needing extra time to complete. Social History Household Members spouse family Living Arrangements House Number of Floors (Floors) 3 or More Floors Number of Stairs To Enter/Railing? one step to enter; pt will stay on first level of the house. Pt states a bit of distance to get to the front door and is gravels for part of the way. shower/bathroom is upstairs: 14 steps with L rail ascending Home Environment Standard Height Toilet Tub/Shower Home Equipment Four Wheel Walker Straight Cane Hand Held Shower Additional Social History Comment pt's brother will stay with pt for ~ 2 months to assist him pt stated that he is on disability and not able to work M2 OT-IP Current Condition Start: 11/12/18 13:35 Freq: Status: Active Protocol: Document 11/12/18 13:37 CCC (Rec: 07/19/19 13:59 [facility] [id number]) Occupational Therapy Current Condition Current Condition Evaluation Date 11/12/18 Treatment Diagnosis B TKA, weakness Diagnosis Onset Date 11/10/18 Weight Bearing Status Weight Bearing Status Weight Bear as Tolerated M3 OT- IP Subjective and Pain Start: 11/12/18 13:35 Freq: Status: Active Protocol: Document 11/12/18 13:37 [facility] (Rec: 11/12/18 13:59 [facility] [id number]) OT- Subjective Occupational Therapy Visit Type Type Initial Evaluation Visit Start Time 12:57 Visit Stop Time 13:30 Total Visit Minutes 33 Occupational Therapy Visit Comments Patient Comments Pt wanting to get back to the bed. Patient/Caregiver Goals Pt hopeful to go home but open to go to skilled rehab if needed. OT Pain Assessment Pain When Pain Assessed During Mobility Pain Present Pain Present Pain Reported Location Bilateral Knee Intensity 7 Scale Used Numeric (1 - 10) M4 OT- IP ADL's Start: 11/12/18 13:35 Freq: Status: Active Protocol: Document 11/12/18 13:37 [facility] (Rec: 11/12/18 13:59 [facility] [id number]) OT ADL-Grooming General Evaluation Grooming Ability Standby Assistance Areas Needing Assistance Retrieving/Set-up of Grooming Items Comments OT Grooming Comments Pt able to stand with FWW by leaning to counter with hands to do all grooming needs with increased time. OT ADL-Oral Care General Eval Oral Care Ability Independent OT ADL-Dressing General Eval Lower Body Dressing Ability Maximum Assistance Areas Needing Assistance Socks Comments OT Dressing Comments At this time pt not able to bend his knees enough to be able to use sock aid to assist , and that will need assist to eli/doff socks. In addition will need assist for rest of LB dressing as not able to independently lift his legs up without use of his hands. OT ADL-Toileting Comments OT Toileting Comments Pt not having to use the toilet at ths time. Educated about use of BSC and urinal as pt heavily relies on BUE to stand. OT ADL-Bathing Comments OT Bathing Comments Educated pt best to have tub bench at home to increase ease and safety for showering. M5 OT- IP IADL's Start: 11/12/18 13:35 Freq: Status: Active Protocol: Document 11/12/18 13:37 [facility] (Rec: 11/12/18 13:59 [facility] [id number]) OT-Instrumental Activities of Daily Living Home Safety Awareness Ability to Problem Solve Emergency Able to Problem Solve Situations Medication Management Medication Management No Deficits Identified Money Management Money Management Caregiver Provides Assistance Meal Preparation Meal Preparation Caregiver Provides Assist Reception Interviewer Reception Interviewer Caregiver Provides Assist M6 OT- IP Functional Cognition Start: 11/12/18 13:35 Freq: Status: Active Protocol: Document 11/12/18 13:37 [facility] (Rec: 11/12/18 13:59 [facility] [id number]) Cognitive Factors Limiting Selfcare Function Cognitive Ability Level of Alertness Alert Patient Orientation Name Place Situation Attention Span Ability Capable of Focused Attention Capable of Sustained Attention Ability to Follow Commands Able to Follow One Step Commands Memory Description No Deficits Noted Safety Awareness No Deficits Noted Cognitive Comments Cognitive Assessment Comments At this time no deficits noted , mainly just cues for posture to try to stand upright. Pt cooperative and pleasant. OT- Vision and Hearing OT- Hearing Assessment OT- Hearing Assessment WFL M7 OT- IP Mobility and Balance Start: 11/12/18 13:35 Freq: Status: Active Protocol: Document 11/12/18 13:37 [facility] (Rec: 11/12/18 13:59 [facility] [id number]) OT-Transfer Assessment Sit to and From Stand Sit to and from Stand Moderate Assistance Transfers Transfer Ability Minimal Assistance Moderate Assistance Technique Transfer Destination Bed Chair Transfer Technique Stand Step Pivot Devices Transfer Assistive Devices Gait Belt Front Wheeled Walker Comments Mobility Comments MODA to come to stand due to needing assist for balance while trying to get his BLE underneath him once up. Pt needing MODA to help lower to surfaces as has difficulty with pain and to get legs out before sitting. Pt needing assist to help lift up right leg into the bed. Leg lifted loaned to pt to help to assist to move his legs. OT- Balance Assessment Sitting Balance and Reactions Static Sitting Balance Ability Normal Dynamic Sitting Balance Ability Good Standing Balance and Reactions Static Standing Balance Ability Fair M8 OT- IP Objective Assessments Start: 11/12/18 13:35 Freq: Status: Active Protocol: Document 11/12/18 13:37 [facility] (Rec: 11/12/18 13:59 [facility] [id number]) OT Gross Range of Motion Upper Extremity Range of Motion Assessment Within Functional Limits OT-Muscle Tone Assessment Muscle Tone WNL Yes M9 OT- IP Assessment and Plan Start: 11/12/18 13:35 Freq: Status: Active Protocol: Document 11/12/18 13:37 [facility] (Rec: 11/12/18 13:59 [facility] [id number]) OT Summary Assessment and Plan Potential Rehabilitation Potential Good Analytic Complexity at Evaluation Low Summary OT Impairments Pain Strength Balance Functional Mobility Dressing Toileting Bathing Toilet Transfers Shower Transfers Progress Towards Goals Slow Progress due to Pain Slow Progress due to Activity Tolerance Assessment Summary Pt low complexity and main barrier is step at home, and now needing extensive assist for ADl's, and mainly from sit to stand. Pt decreased activity tolerance, balance, and AROM for knees therefore at this time would be beneficial for pt to go to skilled rehab prior to going home. Goals Grooming Goal Independent Dressing Goal Moderate Assistance Toileting Goal Minimal Assistance Bathing Goal Moderate Assistance Toilet Transfer Goal Contact Guard Assistance Shower Transfer Goal Minimal Assistance Patient/Caregiver Education Goal Caregiver Independent Assisting Patient Days to Meet Goals 5 Frequency of Treatment Frequency Of Treatment Once a Day Treatment Plan OT Treatment Plan ADL Training Functional Mobility Patient/Family Education Discharge Planning Other Treatment Recommendations and Next LB AED, shower if appropriate. Treatment Focus Discharge Recommendations OT Discharge Recommendations SNF Rehab Home Equipment Needs BSC, tub bench, leg office analyst, sock aid
--- NOTE | 2018-11-12 15:10 | PT.IPTN ---
Current Diagnoses Bilateral primary osteoarthritis of knee (11/10/18) Surgery Performed Operation Date: 11/10/18 11:00 Actual Procedures p Total Knee Arthroplasty(Bilateral) - Donald Prak MD Physical Therapy Treatment Note M2 PT-IP Current Condition Start: 11/10/18 16:55 Freq: NEEDED Status: Active Protocol: Document 11/11/18 11:28 AB (Rec: 11/11/18 12:48 AB [id number]) Physical Therapy Current Condition Current Condition Evaluation Date 11/11/18 Treatment Diagnosis s/p B TKA; difficulty in walking Onset Date 11/10/18 Weight Bearing Status Weight Bearing Status Weight Bear as Tolerated M3 PT-IP Subjective Start: 11/10/18 16:55 Freq: NEEDED Status: Active Protocol: Document 11/12/18 15:10 AB (Rec: 11/12/18 17:18 AB [id number]) Subjective Physical Therapy Visit Type Type Treatment Note Visit Start Time 15:10 Visit Stop Time 15:33 Total Visit Minutes 23 Number of PULMONARY PHYSICAL THERAPIST Visits 0 Physical Therapy Visit Comments Patient Comments pt agreeable to do PT; spouse and brother present during PT tx session Therapy Pain Assessment Pain When Pain Assessed At Rest Pain Present Pain Present Pain Reported Location Bilateral Knee Intensity 7 Scale Used Numeric (1 - 10) Pain Management Techniques Apply Cold Re-positioning Timing of Activity with Medications M4 PT-IP Mobility and Gait Start: 11/10/18 16:55 Freq: NEEDED Status: Active Protocol: Document 11/12/18 15:10 AB (Rec: 11/12/18 17:18 AB [id number]) PT-Bed Mobility Assessment Supine to Sit Supine to Sit Minimal Assistance 1 Person Assistance PT-Transfer Assessment Sit to and From Stand Sit to and from Stand Moderate Assistance 1 Person Assistance Use of Upper Extremities Equipment Transfer Assistive Device Gait Belt Front Wheeled Walker Orthotic/Prosthetic Devices or Brace: No Transfers Transfer Destination Chair Transfer Technique pt ambulated using FWW Transfer Ability Level of Assist Moderate Assistance 1 Person Assistance Use of Upper Extremities Comments Mobility Comments initiated caregiver training. spouse educated on how to assist pt and how to use safety belt. Gait Assessment Gait Gait Assistance Required: Moderate Assistance Distance (Feet) 25 Able to Maintain Weight Bearing Status Yes During Gait Assistive Devices Assistive Device Gait Belt Front Wheeled Walker Orthotic/Prosthetic Devices or Brace: No Gait Deviations General Gait Pattern Antalgic Decreased Stride Length Decreased Feet Clearance Flexed Trunk Factors Limiting Gait Function Factors Limiting Gait Function Decreased Activity Tolerance Decreased Strength Limited Range of Motion Pain Poor Balance M5 PT-IP Objective Assessments Start: 11/10/18 16:55 Freq: NEEDED Status: Active Protocol: Document 11/11/18 11:28 AB (Rec: 11/11/18 12:48 AB [id number]) Orientation Orientation/Cognition Level of Alertness Alert Orientation Name Date Place Situation Language Function Ability No Deficits Noted Safety Awareness Decreased Safety Awareness Gross Range of Motion Lower Extremity ROM Assessment Bilaterally Impaired Impairments L knee flexion: ~ 30 deg R knee flexion: ~ 40 deg bilateral knee extension: lacking 20 degrees to neutral Strength Lower Extremity Strength Assessment Bilaterally Impaired Comments Strength Comments LLE: 3+/5 RLE: 3-/5 Sensation Assessment Sensation Gross Sensation WNL Muscle Tone Muscle Tone WNL Yes M6 PT-IP Treatment Start: 11/10/18 16:55 Freq: NEEDED Status: Active Protocol: Document 11/12/18 15:10 AB (Rec: 11/12/18 17:18 AB [id number]) Physical Therapy Treatment Exercises Exercises Heel Slides Education Education Provided Precautions Safety M7 PT-IP Assessment and Plan Start: 11/10/18 16:55 Freq: NEEDED Status: Active Protocol: Document 11/12/18 15:10 AB (Rec: 11/12/18 17:18 AB [id number]) PT Summary Assessment and Plan Potential Rehabilitation Potential Good Summary Impairments Pain ROM Strength Balance Coordination Sensation Tone Cognition Bed Mobility Transfers Gait Activity Tolerance Progress Towards Goals Slow Progress due to Pain Slow Progress due to Activity Tolerance Assessment Summary pt continues to require mod A and cues with mobility and as decrease activity tolerance affecting mobility and consistency with level of assist. pt will need SNF rehab to improve strenght and function. Goals Bed Mobility Goal Independent Transfer Goal Standby Assistance Front Wheeled Walker Gait Goal Standby Assistance Front Wheel Walker Gait Distance 100 Other Goals up/down 1 step using FWW CGA Days to Meet Goals 5 Frequency of Treatment Frequency Of Treatment Twice a Day Treatment Plan Physical Therapy Treatment Plan Bed Mobility Training Transfer Training Gait Training Therapeutic Exercise Balance Retraining Post Op Education Discharge Planning Hot or Cold Pack Neuromuscular Re-ed Coordination Retraining Manual Therapy Recommendations To Nursing Amount of Assist Needed 1 Person Assist Discharge Recommendations PT Discharge Recommendations SNF Rehab
[2018-11-12] MEDS: NICOTINE 21 MG PATCH TOP (18:10)
--- NOTE | 2018-11-12 18:19 | PC.NURSE ---
Pt R knee bleeds when he ambulates x 2 this shift. Will consider changing aquacell dressing this shift.
[2018-11-12] MEDS: dexAMETHasone 4 MG TABLET PO (18:37)
[2018-11-12] MEDS: MIRTAZAPINE 15 MG TABLET 45 MG PO (21:20)
[2018-11-13] VITALS: BP 130/76; PULSE 106; RESP 20; TEMP 36.7; O2SAT 96
[2018-11-13] MEDS: dexAMETHasone 4 MG TABLET PO ×2 (03:18→13:01)
[2018-11-13] MEDS: hydrOXYzine pamoate 25 MG CAPSULE PO ×2 (03:22→08:18)
[2018-11-13] MEDS: HYDROMORPHONE 2 MG TABLET 4 MG PO ×3 (03:22→13:00)
[2018-11-13 05:17] VITALS: BP 130/74; PULSE 96; RESP 20; TEMP 36.2; O2SAT 91
[2018-11-13] MEDS: MAGNESIUM HYDROXIDE 30 ML UDC PO (08:17)
[2018-11-13] MEDS: ACETAMINOPHEN 325 MG TABLET 975 MG PO ×2 (08:18→15:00)
[2018-11-13] MEDS: PANTOPRAZOLE 20 MG TABLET PO (08:18)
[2018-11-13] MEDS: CYCLOBENZAPRINE 10 MG TABLET PO ×2 (08:18→13:01)
[2018-11-13] MEDS: ASPIRIN EC 81 MG TABLET PO (08:18)
[2018-11-13] MEDS: GABAPENTIN 400 MG CAPSULE 800 MG PO ×2 (08:18→13:02)
[2018-11-13] MEDS: SODIUM CHLORIDE 0.9% FLUSH 10 ML IV (08:19)
[2018-11-13] MEDS: TAMSULOSIN 0.4 MG CAPSULE PO (08:19)
[2018-11-13 08:40] VITALS: BP 125/85; PULSE 111; RESP 16; TEMP 36.6; O2SAT 98
--- NOTE | 2018-11-13 10:39 | CM.DPC ---
Addendum entered by Audra Cobos R.N. 11/13/18 11:22: Plan is for [facility] today or home. Rachell in [place] stated, patient did better on his transfer today. [facility] can pick him up at 3:00pm today, if Wil is still the plan. If he goes home, can pursue home health through [facility]. Will touch base with Rachell today. [facility] referral no longer needed. Original Note: DCP Cont: Spoke to mohit Mcmillan, and stated that patient was wanting to go to [facility] so his would not have to drive so far. Let her know, that if medically stable, would not be able to wait until Thursday, where a potential opening might be. Discussed patient during team rounds, and agreed from physical therapy stand point, that patient will need alf, due to him being a max assist. Met with , Deedee, and patient, as well as brother. Pleasant family. Discussed that [facility] could not take patient until at least Thursday, per last note from Candi. Let them know, if medically stable, may need to be discharged today, and [facility] can accept. Had spoken to September this morning, and re-emphasized that they can accept patient today. stated, if I have to drive to [facility] to see my , it's ok. They reside in [place], and the drive is approximately two hours away. Discussed with mohit Pollack, regarding conversation with family. They are requesting to meet with her, is in room. She will see patient now. Let her know, if all goes as planned, she can write orders for today. Had already discussed patient with Ashley in admissions at [facility], who stated, if Estela states that we can't accept until Thursday, we have to go by that. She requested clinical information on patient, went ahead and sent. She stated that she may contact administration to see if there is a chance of accepting him, but stated, is not likely today. P: DCP to continue to follow closely. Patient could be discharged today to [facility]. Will go ahead and complete PASSR, and discuss with Jaki after she sees patient. Audra Cobos RN/[employer]
--- NOTE | 2018-11-13 11:15 | P.DS_ITS ---
History of Present Illness Date Patient Seen: 11/13/18 Time Patient Seen: 11:15 Chief complaint: [id number] Narrative: The patient presents today for total knee arthroplasty after failure of conservative treatment. The nature of the procedure including the risks and benefits, alternatives, postoperative course and expected outcome were discussed and all questions answered. Consent was obtained. Operative site confirmed and marked. Discharge Providers Date of admission: 11/10/18 08:53 Discharge Date: 11/15/18 Primary care physician: Hermilo Rios MD Consults: 11/10/18 16:03 Consult to Discharge Planning Routine Comment: Consult to Physical Therapy Evaluate & Treat Comment: Physician Instructions: postop TKA protocol Consult to Respiratory Therapy Evaluate & Treat Comment: Physician Instructions: Evaluate and treat 11/11/18 13:32 Consult to Occupational Therapy Evaluate & Treat Comment: bilateral total knee arthroplasty Physician Instructions: Evaluate and treat Discharge provider: Emily Elizabeth PA-C Summary Discharge Diagnosis: s/p bilateral total knee arthroplasties depression headaches acute urinary retention Hospital Course: Amir was admitted for bilateral total knee arthroplasties with Dr. Park. Patient did have acute urinary retention issues while here. Was started on Flomax and able to void. He did have significant pain control issues and has had two doses of IV toradol. Has been taking Dilaudid 4 mg q.3h and still complaining of pain. Also having difficulty voiding. He did have straight cath done at 0530 this morning and has not voided since then. He continues having this limitation on ambulation and activity with physical therapy. Still needing assist. Exam Vital Signs (past 8 hours): - 11/13/18 05:17 11/13/18 08:40 Temperature 97.2 F L 97.9 F Pulse Rate 96 H 111 H Respiratory Rate 20 16 Blood Pressure 130/74 125/85 Pulse Oximetry 91 98 Fraction of Inspired Oxygen 28 Oxygen Delivery Method Room Air Oxygen Flow Rate 0 Narrative Exam Narrative: Patient sitting in bed in NAD. He is alert and oriented X3. Dressing on right knee will need to be changed prior to DC. Recommending he keeps maribel wrap on for another few days. Left knee dressing CDI. Calves are soft, compressible, and nontender bilaterally. SILT throughout BLEs. Another toradol injection today. Pain controlled with dilaudid. Objective Labs Result Diagrams: 11/11/18 06:28 Discharge Plan Discharge Plan Patient Disposition: SNF Transfer to: [facility] Under care of provider: Facility MD Transportation: Facility vehicle Consult as needed: Dental, Hearing, Mental health, Podiatry and Vision I certify the postop hospital half-way care is medically necessary on a continuing basis for any conditions for which he/ she received care during this hospitalization.: Yes The receiving facility has agreed to accept transfer and provide medical treatment.: Yes Discharge Med Rec/Prescriptions Prescriptions: New acetaminophen 325 mg Tablet 975 mg PO TID Qty: 60 RF: 0 aspirin 81 mg Tablet,Delayed Release (Dr/Ec) 81 mg PO BID Qty: 60 RF: 0 tamsulosin [Flomax] 0.4 mg Capsule 0.4 mg PO DAILY Qty: 30 RF: 0 docusate sodium [DOK] 100 mg Capsule 200 mg PO BID PRN (Reason: Constipation) Qty: 60 RF: 0 hydroxyzine pamoate 25 mg Capsule 25 mg PO Q4HR PRN (Reason: Nausea) Qty: 60 RF: 0 hydromorphone 2 mg Tablet 4 mg PO Q3HR PRN (Reason: Pain, Severe (7-10)) Qty: 60 RF: 0 Continued cyclobenzaprine 10 mg Tablet 10 mg PO QID RF: 0 gabapentin 800 mg Tablet 800 mg PO QID RF: 0 mirtazapine 45 mg Tablet 45 mg PO BEDTIME RF: 0 naproxen sodium [Aleve] 220 mg Capsule 2 tab PO DAILY PRN (Reason: pain) RF: 0 omeprazole 20 mg Capsule,Delayed Release(Dr/Ec) 20 mg PO DAILY RF: 0 Discontinued acetaminophen [Tylenol Extra Strength] 500 mg Tablet 1,000 mg PO DAILY RF: 0 Follow up/Referrals: Hermilo Rios MD [Primary Care Provider] - (Follow up for urinary retention) Donald Park MD [Physician] - 11/17/18 1:00 pm (First follow up appointment is with MATT Shaffer at 1:00 PM, [facility] Discharge Health Status Brief summary of current health status: Patient recovering from bilateral total knee arthroplasties. Multidrug resistant organism: No MDRO Provider Discharge Instructions Diet: Diet as Tolerated Liquid consistency: Normal/Thin Food texture: Regular Skin/Wound/Dressing Care Report to your healthcare provider any signs of infection, such as:: chills, fever and increased pain Dressing: Leave both dressings in place until second post operative appointment. Special Rehabilitation Services Reason for rehabilitation: Post-operative therapy Rehab type: Physical therapy and Occupational therapy Visit Report/Discharge Packet Instructions: DI for Knee Replacement, How to Prevent Falls, DI for Postope rative Pain Stand Alone Forms: Surgery Discharge Visit Report Forms: Stroke Signs & Symptoms Discharge Data Primary Care Provider: Hermilo Rios Attending Provider: Donald Park Admit Date/Time: 11/10/18 08:53 Discharges patient from system. Discharge Date/Time: 11/13/18 15:10 Quality VTE Deep Vein Thrombosis/Pulmonary Embolism Present on Admission: No
--- NOTE | 2018-11-13 11:25 | PT.IPTN ---
Current Diagnoses Bilateral primary osteoarthritis of knee (11/10/18) Surgery Performed Operation Date: 11/10/18 11:00 Actual Procedures p Total Knee Arthroplasty(Bilateral) - Donald Park MD Physical Therapy Treatment Note M2 PT-IP Current Condition Start: 11/10/18 16:55 Freq: NEEDED Status: Active Protocol: Document 11/11/18 11:28 AB (Rec: 11/11/18 12:48 AB [id number]) Physical Therapy Current Condition Current Condition Evaluation Date 11/11/18 Treatment Diagnosis s/p B TKA; difficulty in walking Onset Date 11/10/18 Weight Bearing Status Weight Bearing Status Weight Bear as Tolerated M3 PT-IP Subjective Start: 11/10/18 16:55 Freq: NEEDED Status: Active Protocol: Document 11/13/18 10:55 GGD (Rec: 11/13/18 12:04 GGD [id number]) Subjective Physical Therapy Visit Type Type Treatment Note Visit Start Time 10:55 Visit Stop Time 11:25 Total Visit Minutes 30 Number of BLEACHING SUPERVISOR Visits 1 Physical Therapy Visit Comments Patient Comments Pt willing to work with therapy. Therapy Pain Assessment Pain When Pain Assessed At Rest Pain Present Pain Present Pain Reported Location Bilateral Knee Intensity 5 Scale Used Numeric (1 - 10) M4 PT-IP Mobility and Gait Start: 11/10/18 16:55 Freq: NEEDED Status: Active Protocol: Document 11/13/18 10:55 GGD (Rec: 11/13/18 12:04 GGD [id number]) PT-Bed Mobility Assessment Supine to Sit Supine to Sit Contact Guard Assistance Scooting Scooting to Edge of Bed Standby Assistance PT-Transfer Assessment Sit to and From Stand Sit to and from Stand Minimal Assistance 1 Person Assistance Use of Upper Extremities Equipment Transfer Assistive Device Gait Belt Front Wheeled Walker Orthotic/Prosthetic Devices or Brace: No Transfers Transfer Destination Chair Transfer Ability Level of Assist Contact Guard Assistance 1 Person Assistance Use of Upper Extremities Gait Assessment Gait Gait Assistance Required: Contact Guard Assist Distance (Feet) 250 Able to Maintain Weight Bearing Status Yes During Gait Assistive Devices Assistive Device Gait Belt Front Wheeled Walker Orthotic/Prosthetic Devices or Brace: No Gait Deviations General Gait Pattern Antalgic Decreased Stride Length Decreased Feet Clearance Flexed Trunk Factors Limiting Gait Function Factors Limiting Gait Function Decreased Activity Tolerance Decreased Strength Limited Range of Motion Pain Poor Balance Stair Climbing Assessment Evaluation Level of Assist On Stairs Contact Guard Assistance 1 Person Assistance Devices Stair Climbing Assistive Devices Front Wheel Walker Technique/Endurance Stair Climbing Direction Ascend and Descend Stair Climbing Technique Step to Step Number of Steps Climbed 1 Stair Climbing Set # Repetitions (reps) 2 Comments Stair Climbing Comments caregiver training for stair mobility. M5 PT-IP Objective Assessments Start: 11/10/18 16:55 Freq: NEEDED Status: Active Protocol: Document 11/11/18 11:28 AB (Rec: 11/11/18 12:48 AB [id number]) Orientation Orientation/Cognition Level of Alertness Alert Orientation Name Date Place Situation Language Function Ability No Deficits Noted Safety Awareness Decreased Safety Awareness Gross Range of Motion Lower Extremity ROM Assessment Bilaterally Impaired Impairments L knee flexion: ~ 30 deg R knee flexion: ~ 40 deg bilateral knee extension: lacking 20 degrees to neutral Strength Lower Extremity Strength Assessment Bilaterally Impaired Comments Strength Comments LLE: 3+/5 RLE: 3-/5 Sensation Assessment Sensation Gross Sensation WNL Muscle Tone Muscle Tone WNL Yes M6 PT-IP Treatment Start: 11/10/18 16:55 Freq: NEEDED Status: Active Protocol: Document 11/13/18 10:55 GGD (Rec: 11/13/18 12:04 GGD [id number]) Physical Therapy Treatment Exercises Exercises Seated Knee Flexion/Extension Education Education Provided Safety M7 PT-IP Assessment and Plan Start: 11/10/18 16:55 Freq: NEEDED Status: Active Protocol: Document 11/13/18 10:55 GGD (Rec: 11/13/18 12:04 GGD [id number]) PT Summary Assessment and Plan Summary Assessment Summary Pt improving with mobility. He needed less assist. He was able to progress his gait distance. He able to stair mobility, but need assist with FWW. Frequency of Treatment Frequency Of Treatment Twice a Day Treatment Plan Physical Therapy Treatment Plan Bed Mobility Training Transfer Training Gait Training Therapeutic Exercise Balance Retraining Post Op Education Discharge Planning Hot or Cold Pack Neuromuscular Re-ed Coordination Retraining Manual Therapy Recommendations To Nursing Amount of Assist Needed 1 Person Assist Discharge Recommendations PT Discharge Recommendations Home with 24/7 Assist Home Health SNF Rehab Other Discharge Recommendations depending on progress: SNF vs home with 24/7/ homehealth PT/ outpt PT Equipment Needed for Home Before FWW Discharge
[2018-11-13 12:00] VITALS: BP 131/84; PULSE 111; RESP 15; TEMP 36.8; O2SAT 92
[2018-11-13] MEDS: KETOROLAC 30 MG/ML VIAL IV (13:00)
[2018-11-13] MEDS: NICOTINE 21 MG PATCH TOP (13:01)
--- NOTE | 2018-11-13 13:30 | PT.IPTN ---
Current Diagnoses Bilateral primary osteoarthritis of knee (11/10/18) Surgery Performed Operation Date: 11/10/18 11:00 Actual Procedures p Total Knee Arthroplasty(Bilateral) - Donald Park MD Physical Therapy Treatment Note M2 PT-IP Current Condition Start: 11/10/18 16:55 Freq: NEEDED Status: Active Protocol: Document 11/11/18 11:28 AB (Rec: 11/11/18 12:48 AB [id number]) Physical Therapy Current Condition Current Condition Evaluation Date 11/11/18 Treatment Diagnosis s/p B TKA; difficulty in walking Onset Date 11/10/18 Weight Bearing Status Weight Bearing Status Weight Bear as Tolerated M3 PT-IP Subjective Start: 11/10/18 16:55 Freq: NEEDED Status: Active Protocol: Document 11/13/18 13:30 GGD (Rec: 11/13/18 14:15 GGD [id number]) Subjective Physical Therapy Visit Type Type Treatment Note Visit Start Time 13:00 Visit Stop Time 13:30 Number of DIRECTOR STATE PHARMACY Visits 2 Physical Therapy Visit Comments Patient Comments Pt willing to work with therapy. Therapy Pain Assessment Pain When Pain Assessed At Rest Pain Present Pain Present Pain Reported Location Bilateral Knee Intensity 4 Scale Used Numeric (1 - 10) M4 PT-IP Mobility and Gait Start: 11/10/18 16:55 Freq: NEEDED Status: Active Protocol: Document 11/13/18 13:30 GGD (Rec: 11/13/18 14:15 GGD [id number]) PT-Bed Mobility Assessment Sit to Supine Sit to Supine Standby Assistance PT-Transfer Assessment Sit to and From Stand Sit to and from Stand Contact Guard Assistance 1 Person Assistance Use of Upper Extremities Equipment Transfer Assistive Device Gait Belt Front Wheeled Walker Orthotic/Prosthetic Devices or Brace: No Transfers Transfer Destination Chair Transfer Ability Level of Assist Contact Guard Assistance 1 Person Assistance Use of Upper Extremities Gait Assessment Gait Gait Assistance Required: Contact Guard Assist Distance (Feet) 220 Able to Maintain Weight Bearing Status Yes During Gait Assistive Devices Assistive Device Gait Belt Front Wheeled Walker Orthotic/Prosthetic Devices or Brace: No Gait Deviations General Gait Pattern Antalgic Decreased Stride Length Decreased Feet Clearance Flexed Trunk Factors Limiting Gait Function Factors Limiting Gait Function Decreased Activity Tolerance Decreased Strength Limited Range of Motion Pain Poor Balance M5 PT-IP Objective Assessments Start: 11/10/18 16:55 Freq: NEEDED Status: Active Protocol: Document 11/11/18 11:28 AB (Rec: 11/11/18 12:48 AB [id number]) Orientation Orientation/Cognition Level of Alertness Alert Orientation Name Date Place Situation Language Function Ability No Deficits Noted Safety Awareness Decreased Safety Awareness Gross Range of Motion Lower Extremity ROM Assessment Bilaterally Impaired Impairments L knee flexion: ~ 30 deg R knee flexion: ~ 40 deg bilateral knee extension: lacking 20 degrees to neutral Strength Lower Extremity Strength Assessment Bilaterally Impaired Comments Strength Comments LLE: 3+/5 RLE: 3-/5 Sensation Assessment Sensation Gross Sensation WNL Muscle Tone Muscle Tone WNL Yes M6 PT-IP Treatment Start: 11/10/18 16:55 Freq: NEEDED Status: Active Protocol: Document 11/13/18 13:30 GGD (Rec: 11/13/18 14:15 GGD [id number]) Physical Therapy Treatment Exercises Exercises Ankle Pumps Quad Sets Heel Slides Seated Knee Flexion/Extension M7 PT-IP Assessment and Plan Start: 11/10/18 16:55 Freq: NEEDED Status: Active Protocol: Document 11/13/18 13:30 GGD (Rec: 11/13/18 14:15 GGD [id number]) PT Summary Assessment and Plan Summary Assessment Summary Pt improving with mobility. He needed less assist with sit < > stand. He need cues for gait pattern and posture. Frequency of Treatment Frequency Of Treatment Twice a Day Treatment Plan Physical Therapy Treatment Plan Bed Mobility Training Transfer Training Gait Training Therapeutic Exercise Balance Retraining Post Op Education Discharge Planning Hot or Cold Pack Neuromuscular Re-ed Coordination Retraining Manual Therapy Recommendations To Nursing Amount of Assist Needed 1 Person Assist Discharge Recommendations PT Discharge Recommendations Home with 24/7 Assist Home Health SNF Rehab Other Discharge Recommendations depending on progress: SNF vs home with 24/7/ homehealth PT/ outpt PT Equipment Needed for Home Before FWW if D/C home Discharge
--- NOTE | 2018-11-13 14:07 | PC.NURSE ---
Discharge Pt with bloody drainage from R knee. Dressing removed this AM and was replaced with aquacel. up with PT 1x and about 1/3 saturated with blood again. Notified PA, orders to place steri strips on bleeding part, replace aquacel, place ABD pads on top of incision and secure with JENN wrap to provide compression. This was done. Pt states pain controlled with PO dilaudid and hydroxazine. pt chose to d/c to [facility], plan for p/u at 1500. Report called to Madeleine at [facility]. PIV removed without issue. 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
--- NOTE | 2018-11-13 14:10 | OT.IP.TRT ---
Current Diagnoses Bilateral primary osteoarthritis of knee (11/10/18) Surgery Performed Operation Date: 11/10/18 11:00 Actual Procedures p Total Knee Arthroplasty(Bilateral) - Donald Park MD Occupational Therapy Treatment Note M2 OT-IP Current Condition Start: 11/12/18 13:35 Freq: Status: Active Protocol: Document 11/12/18 13:37 [facility] (Rec: 11/12/18 13:59 [facility] [email or web address]) Occupational Therapy Current Condition Current Condition Evaluation Date 11/12/18 Treatment Diagnosis B TKA, weakness Diagnosis Onset Date 11/10/18 Weight Bearing Status Weight Bearing Status Weight Bear as Tolerated M3 OT- IP Subjective and Pain Start: 11/12/18 13:35 Freq: Status: Active Protocol: Document 11/13/18 14:03 [facility] (Rec: 11/13/18 14:10 [facility] [email or web address]) OT- Subjective Occupational Therapy Visit Type Type Treatment Note Visit Start Time 10:55 Visit Stop Time 11:30 Total Visit Minutes 35 Occupational Therapy Visit Comments Patient Comments Pt feeling much better today. Patient/Caregiver Goals Pt wanting to go home but agreeable to go to skilled rehab initially. OT Pain Assessment Pain When Pain Assessed During Mobility Pain Present Pain Present Pain Reported Location Bilateral Knee Intensity 7 Scale Used Numeric (1 - 10) M4 OT- IP ADL's Start: 11/12/18 13:35 Freq: Status: Active Protocol: Document 11/13/18 14:03 [facility] (Rec: 11/13/18 14:10 [facility] [email or web address]) OT ADL-Dressing General Eval Lower Body Dressing Ability Standby Assistance Areas Needing Assistance Socks Comments OT Dressing Comments Pt able to use sock aid and correction officer with vc to eli/doff socks. M5 OT- IP IADL's Start: 11/12/18 13:35 Freq: Status: Active Protocol: Document 11/12/18 13:37 [facility] (Rec: 11/12/18 13:59 [facility] [email or web address]) OT-Instrumental Activities of Daily Living Home Safety Awareness Ability to Problem Solve Emergency Able to Problem Solve Situations Medication Management Medication Management No Deficits Identified Money Management Money Management Caregiver Provides Assistance Meal Preparation Meal Preparation Caregiver Provides Assist Director Of Academic Director Of Academic Caregiver Provides Assist M6 OT- IP Functional Cognition Start: 11/12/18 13:35 Freq: Status: Active Protocol: Document 11/12/18 13:37 [facility] (Rec: 11/12/18 13:59 [facility] [email or web address]) Cognitive Factors Limiting Selfcare Function Cognitive Ability Level of Alertness Alert Patient Orientation Name Place Situation Attention Span Ability Capable of Focused Attention Capable of Sustained Attention Ability to Follow Commands Able to Follow One Step Commands Memory Description No Deficits Noted Safety Awareness No Deficits Noted Cognitive Comments Cognitive Assessment Comments At this time no deficits noted , mainly just cues for posture to try to stand upright. Pt cooperative and pleasant. OT- Vision and Hearing OT- Hearing Assessment OT- Hearing Assessment WFL M7 OT- IP Mobility and Balance Start: 11/12/18 13:35 Freq: Status: Active Protocol: Document 11/13/18 14:03 [facility] (Rec: 11/13/18 14:10 [facility] [email or web address]) OT- Bed Mobility Assessment Supine to Sit Supine to Sit Assist Contact Guard Assistance OT-Transfer Assessment Sit to and From Stand Sit to and from Stand Contact Guard Assistance Minimal Assistance Transfers Transfer Ability Contact Guard Assistance Technique Transfer Destination Bed Chair Toilet Transfer Technique Stand Step Pivot Devices Transfer Assistive Devices Gait Belt Front Wheeled Walker Comments Mobility Comments Pt needing more assist to stand from lower surface and best to have BSC at home as not balance or strong enough to come to stand via pushing up on FWW. M8 OT- IP Objective Assessments Start: 11/12/18 13:35 Freq: Status: Active Protocol: Document 11/12/18 13:37 [facility] (Rec: 11/12/18 13:59 [facility] [email or web address]) OT Gross Range of Motion Upper Extremity Range of Motion Assessment Within Functional Limits OT-Muscle Tone Assessment Muscle Tone WNL Yes M9 OT- IP Assessment and Plan Start: 11/12/18 13:35 Freq: Status: Active Protocol: Document 11/13/18 14:03 [facility] (Rec: 11/13/18 14:10 [facility] [email or web address]) OT Summary Assessment and Plan Potential Rehabilitation Potential Good Analytic Complexity at Evaluation Low Summary Progress Towards Goals Progressing Toward Goals Assessment Summary Pt being discharged to [facility] today. Discharge Recommendations OT Discharge Recommendations SNF Rehab
== END 2018-11-13 15:10 | DRG 462 ==
PROVIDERS: Admitting Provider Orthopaedic Surgery; PCP Family Medicine; Visit Provider Orthopaedic Surgery
PROC: 0SRC0JZ Replacement of Right Knee Joint with Synthetic Substitute, Open Approach (ICD-10-PCS; CPT 27447; principal; 2018-11-10 11:00)
DX: M17.0 Bilateral primary osteoarthritis of knee (principal); F17.210 Nicotine dependence, cigarettes, uncomplicated; F32.9 Major depressive disorder, single episode, unspecified; R33.9 Retention of urine, unspecified; M25.562 Pain in left knee; M25.561 Pain in right knee
CPT/HCPCS: 36415; 73560; 85014; 85018; 94760; 94762; 97116; 97162; 97165; 97530; 97535; C1776; C9290; J0690; J1100; J1170; J1885; J2250; J2274; J2405; J2704